=== PATIENT | male | born 1990 | race Caucasian/White ===

== ENCOUNTER 2022-05-21 08:40 | Emergency (ER) | payer SELFPAY ==
[2022-05-21 09:05] VITALS: BP 147/78; PULSE 93; TEMP 97; BMI 34.8
[2022-05-21 10:00] LABS: BASO % 0.4 % (0-2.0); HEMATOCRIT 45.9 % (35.4-49); HEMOGLOBIN 16.1 GM/dL (11.7-16.9); LYMPH % 8.7 % (8-40); MCH 31.3 pg (25.7-33.7); MEAN CELL VOLUME 89.5 fl (80-96); MEAN PLT VOLUME 8.3 fl (7.5-11.1); MONO % 6.5 % (3.8-10.2); NEUT % 84.4 % (42.8-82.8); PLATELET COUNT 322 10^3/uL (134-434); RBC 5.13 M/mm3 (4.00-5.60); RDW 13.9 % (11.9-15.9); WHITE BLOOD COUNT 16.9 K/mm3 (4.0-10.0)
[2022-05-21 10:26] LABS: INR 1.02 (0.83-1.09); PROTHROMBIN TIME (PATIENT) 11.7 SEC (9.7-13.0)
[2022-05-21 10:29] LABS: ACTIVATED PTT 31.9 SECONDS (25.2-36.5)
[2022-05-21 10:33] LABS: ALBUMIN 4.4 g/dl (3.4-5.0); BLOOD UREA NITROGEN 13.9 mg/dL (7-18)
[2022-05-21 10:36] LABS: CREATININE 0.8 mg/dL (0.55-1.3)
[2022-05-21 10:38] LABS: BILIRUBIN,TOTAL 0.4 mg/dL (0.2-1)
== END 2022-05-21 11:05 | disposition home or self-care (01) ==
LOC: JER 08:40
DX: K62.5 Hemorrhage of anus and rectum (principal)
CPT/HCPCS: 36415; 80053; 82272; 85025; 85610; 85730; 99283-25